=== PATIENT | female | born 1985 ===

== ENCOUNTER 2016-10-21 14:45 | Inpatient (IN) | payer MEDICAID ==
[~2016-10-21] VITALS: Ht 147.3 cm; Wt 62.7 kg
[~2016-10-21 14:45] MED LIST: PRENATAL1 TA1 PO
[2016-11-12] VITALS (20 sets, daily range): BP systolic 99–136; BP diastolic 55–84; PULSE 60–80; TEMP 97.9–98.1
[2016-11-12 06:37] LABS: BASO % 0.2 % (0.0-2.0); EOS # 0.1 (0.0-0.7); EOS % 1.7 % (0-4.0); GRAN # 5.3 (1.4-6.5); GRAN % 63.7 % (42.2-75.2); LYMPH # 2.4 (1.2-3.4); LYMPH % 28.5 % (20.0-51.0); MEAN CELL VOLUME 84 fl (80.0-100.0); MEAN CORPUSCULAR HGB CONC 34 g/dl (33.0-37.0); MEAN PLATELET VOLUME 9.6 fl (7.4-10.4); MONO # 0.4 (0.1-0.6); MONO % 5.3 % (1.7-9.3); PLATELET COUNT 250 K/mm3 (130-400); RED BLOOD COUNT 4.11 M/mm3 (4.10-5.30); REDCELL DISTRIBUTION WIDTH-CV 14.4 % (11.5-14.5); WHITE BLOOD COUNT 8.3 K/mm3 (4.8-10.8)
[2016-11-12 06:42] LABS: HEMATOCRIT 34.6 % (37.0-47.0); HEMOGLOBIN 11.8 g/dl (12.5-16.0); MEAN CORPUSCULAR HEMOGLOBIN 29 pg (27.0-31.0)
[2016-11-13 08:34] VITALS: BP 116/71; PULSE 79; TEMP 97.4
[2016-11-13 09:22] LABS: HEMATOCRIT 30.3 % (37.0-47.0)
[2016-11-13 16:13] VITALS: BP 116/76; PULSE 79; TEMP 97.7
[2016-11-13 21:30] VITALS: BP 110/69; BP 113/71; PULSE 70; PULSE 78; TEMP 97.6; TEMP 98.2
[2016-11-14 07:57] VITALS: BP 112/77; PULSE 70; TEMP 97.8
[2016-11-14] MEDS ORDERED: PERCOCET 325 MG1 TA2 PO (11:08)
[2016-11-14] MEDS ORDERED: IBU600 MG PO (11:08)
== END 2016-11-14 14:20 | disposition home or self-care (01) | DRG 766 ==
LOC: OB 11-12 06:00 → LDR 11-12 06:11 → OB 11-14 14:20 → EDSTATUS 11-19 06:11 → LDRO 11-19 14:44
PROVIDERS: Obstetrics & Gynecology
PROC: 10D00Z1 Extraction of Products of Conception, Low, Open Approach (ICD-10-PCS; principal; 2016-11-12)
DX: O34.211 Maternal care for low transverse scar from previous cesarean delivery (principal); N85.8 Other specified noninflammatory disorders of uterus; Z3A.39 39 weeks gestation of pregnancy; Z37.0 Single live birth
CPT/HCPCS: J0690; J1885; J2270; J2590; J7120

== ENCOUNTER → 2017-04-01 | Outpatient (CLI) | payer OTHER ==
[~2017-04-01] MED LIST changes: +IBU600 MG PO; +PERCOCET 325 MG1 TA2 PO
== END ==
LOC: COL.RAD 12:56
DX: T18.120A Food in esophagus causing compression of trachea, initial encounter (principal); R04.2 Hemoptysis